=== PATIENT | female | born 1965 | race Two or more races ===

== ENCOUNTER 2022-05-11 18:29 | Emergency (ER) | payer BC ==
[~2022-05-11] VITALS: Ht 160 cm; Wt 106.1 kg
--- NOTE | 2022-05-11 19:34 | NUR ---
BIBSELF C/O R ELBOW PAIN X1 DAY. FELL ON IT X1 WEEK AGO IN SHOWER. [id number]. VITALS CHECKED.
[2022-05-11] MEDS ORDERED: KETOROLAC TROMETHAMINE INJ 30 MG/ML VIAL ONE (20:19)
--- NOTE | 2022-05-11 20:25 | NUR ---
FLORAL ASSOCIATE AT CHAIR 1.
[2022-05-11] MEDS ORDERED: KETOROLAC TROMETHAMINE INJ 30 MG/ML VIAL IM ONE (20:30)
[2022-05-11] MEDS ORDERED: NAPR-1009 PO (21:52)
--- NOTE | 2022-05-11 22:01 | NUR ---
Patient discharged to home in stable condition. Written and verbal after care instructions given to patient and to her . Patient and pt's verbalizes understanding of instruction.
[2022-05-11 22:03] VITALS: BP 155/73
== END 2022-05-11 22:04 | disposition home or self-care (01) ==
LOC: ER 18:32
DX: M70.21 Olecranon bursitis, right elbow (principal); I10 Essential (primary) hypertension; Y93.89 Activity, other specified
CPT/HCPCS: 99283; 96372; 73080; J1885

== ENCOUNTER 2024-02-02 16:47 | Emergency (ER) | payer BC, OTHER ==
[~2024-02-02] VITALS: Ht 160 cm; Wt 100.2 kg
[~2024-02-02 16:47] MED LIST: NAPR-1009 PO
[2024-02-02 17:44] LABS: BASOPHILS % (AUTO) 0.6 % (0.0-2.0); EOSINOPHILS # (AUTO) 0.2 K/uL (0.0-0.7); EOSINOPHILS % (AUTO) 2.5 % (0.0-6.0); HEMATOCRIT 37 % (33-45); HEMOGLOBIN 12.3 g/dL (11.5-14.8); LYMPHOCYTES # (AUTO) 1.6 K/uL (0.8-4.8); LYMPHOCYTES % (AUTO) 23.5 % (20.0-44.0); MEAN CORPUSCULAR HEMOGLOBIN 29 PG (26.0-33.0); MEAN CORPUSCULAR HGB CONC 34 g/dl (31.0-36.0); MEAN CORPUSCULAR VOLUME 85 fL (82-100); MONOCYTES # (AUTO) 0.4 K/uL (0.1-1.30); MONOCYTES % (AUTO) 5.3 % (2.0-12.0); NEUTROPHILS # (AUTO) 4.7 K/uL (1.8-8.9); NEUTROPHILS % (AUTO) 68.1 % (43.0-81.0); PLATELET COUNT (AUTO) 246 K/uL (150-450); RED BLOOD CELL COUNT(AUTO) 4.31 MIL/uL (4.0-5.2); RED CELL DISTRIBUTION WIDTH 13.9 % (11.5-15.0); WHITE BLOOD COUNT (AUTO) 6.9 K/uL (4.3-11.0)
[2024-02-02 17:52] LABS: CALCIUM, SERUM 9.1 mg/dL (8.5-10.1); CARBON DIOXIDE 28 mmol/L (21-32); CHLORIDE 108 mmol/L (98-107); CREATININE 0.5 mg/dL (0.6-1.3); GLUCOSE 99 mg/dL (74-106); POTASSIUM 3.8 mmol/L (3.5-5.1); SODIUM SERUM 143 mmol/L (136-145); UREA NITROGEN, BLOOD 17 mg/dL (7-18)
[2024-02-02 17:59] LABS: ALANINE AMINOTRANSFERASE 22 U/L (12-78); ALBUMIN 3.7 g/dL (3.4-5.0); ALKALINE PHOSPHATASE 103 U/L (46-116); ASPARTATE AMINOTRANSFERASE 13 U/L (15-37); BILIRUBIN,DIRECT 0.1 mg/dL (0.0-0.2); BILIRUBIN,TOTAL 0.5 mg/dL (0.2-1.0); TOTAL PROTEIN, SERUM 6.9 g/dL (6.4-8.2)
[2024-02-02 18:00] LABS: ALCOHOL, BLOOD < 3 mg/dL (0-10)
[2024-02-02 18:04] LABS: APPEARANCE,URINE CLEAR (CLEAR); BILIRUBIN,URINE NEGATIVE (NEGATIVE); BLOOD, URINE NEGATIVE Ery/uL (NEGATIVE); COLOR,URINE YELLOW (YELLOW); KETONES,URINE NEGATIVE (NEGATIVE); LEUKOCYTE ESTERASE ,URINE NEGATIVE (NEGATIVE); NITRITE, URINE NEGATIVE (NEGATIVE); PROTEIN,URINE NEGATIVE (NEGATIVE); UGLUCOSE NEGATIVE (NEGATIVE)
[2024-02-02 18:16] LABS: ADD URINE CULTURE NO; BACTERIA,URINE Few /HPF (None Seen); RBC,URINE 0-2 /HPF (0-2)
[2024-02-02 18:17] LABS: AMPHETAMINE, URINE NEGATIVE (NEGATIVE); BARBITURATE, URINE NEGATIVE (NEGATIVE); BENZODIAZEPINE, URINE NEGATIVE (NEGATIVE); CANNABINOID, URINE NEGATIVE (NEGATIVE); COCCAINE, URINE NEGATIVE (NEGATIVE); OPIATE, URINE NEGATIVE (NEGATIVE); PHENCYCLIDINE SCREEN,URINE NEGATIVE (NEGATIVE)
[2024-02-02 20:32] VITALS: BP 139/74; TEMP 98.5; O2SAT 98
== END 2024-02-02 20:33 | disposition home or self-care (01) ==
LOC: ER 16:49
DX: R53.1 Weakness (principal); R41.3 Other amnesia; I10 Essential (primary) hypertension
CPT/HCPCS: 36415; 70450-TC; 71045-TC; 80048-TC; 80076-TC; 81001; 84484-TC; 85025-TC; 87086-TC; G0480